=== PATIENT | female | born 1975 | race Two or more races ===

== ENCOUNTER 2024-04-25 09:30 | Inpatient (IN) | payer OTHER ==
[~2024-04-25] VITALS: Ht 162.6 cm; Wt 72.6 kg
[2024-04-25 10:39] LABS: HEMATOCRIT 35.5 % (36.0-45.00); HEMOGLOBIN 11.7 g/dL (12.0-15.00); MEAN CELL VOLUME 80.4 fL (80.00-100.00); MEAN CORPUSCULAR HEMOGLOBIN 26.5 pg (27.00-32.0); MEAN CORPUSCULAR HGB CONC 32.9 g/dl (32.0-36.0); PLATELET COUNT 246 K/uL (150-450); RED BLOOD COUNT 4.41 M/uL (4.00-6.00)
[2024-04-25 10:42] LABS: URINE APPEARANCE Cloudy; URINE BILIRRUBIN Negative (NEGATIVE); URINE BLOOD Negative; URINE COLOR Yellow; URINE GLUCOSE Negative (NEGATIVE); URINE KETONE Trace (NEGATIVE); URINE LEUKOCYTE Negative; URINE NITRATE Negative; URINE PROTEIN Trace (NEGATIVE)
[2024-04-25 10:46] LABS: URINE BACTERIA 2431.7 uL (0.0-1933); URINE RBC 4.2 uL (0.0-20.8)
[2024-04-25 10:55] LABS: URINE CAST 0.61 uL (0.0-1.40)
[2024-04-25 11:06] LABS: INR 0.94; PARTIAL THROMBOPLASTIN TIME 27.8 SECONDS (22.0-34.0); PROTHROMBIN TIME 9.9 SECONDS (9.0-11.5)
[2024-04-25 11:22] LABS: ALBUMIN 3.9 gm/dL (3.4-5.0); BILIRUBIN TOTAL 0.55 mg/dL (0.3-1.2); CREATININE SERUM 0.7 mg/dL (0.55-1.02); GFR 88.57; GLOBULINA 2.7 G/DL (2.4-3.5); POTASSIUM 4.29 mEq/L (3.5-5.1); TOTAL PROTEIN 6.6 gm/dL (6.4-8.2)
[2024-05-01] MEDS ORDERED: CLINDAMYCIN PHOSPHATE 150 MG/ML (900mg) ONE (07:07)
[2024-05-01] MEDS ORDERED: POVIDONE-IODINE 118 ML BOTT TOP ONE ×2 (07:08→10:15)
[2024-05-01] MEDS ORDERED: CLINDAMYCIN PHOSPHATE 150 MG/ML (900mg) IV SCH (10:15)
[2024-05-01] MEDS ORDERED: LIDOCAINE HCL 1%/EPINEPHRINE 20ML VIAL IJ ONE (10:31)
[2024-05-01] MEDS ORDERED: MEPERIDINE HCL/PF 50 MG/ML VIAL IM PRN (13:30)
[2024-05-01] MEDS ORDERED: RINGERS SOLUTION,LACTATED 1,000 ML IV SCH (13:30)
[2024-05-01] MEDS ORDERED: PROMETHAZINE HCL 50 MG/ML AMPUL IM PRN (13:30)
[2024-05-01] MEDS ORDERED: KETOROLAC TROMETHAMINE 30 MG VIAL ONE (16:24)
[2024-05-01] MEDS ORDERED: KETOROLAC TROMETHAMINE 30 MG VIAL IV SCH (17:00)
[2024-05-02 06:41] LABS: HEMATOCRIT 29.9 % (36.0-45.00); HEMOGLOBIN 9.7 g/dL (12.0-15.00); MEAN CELL VOLUME 82.7 fL (80.00-100.00); MEAN CORPUSCULAR HGB CONC 32.6 g/dl (32.0-36.0); PLATELET COUNT 148 K/uL (150-450); RED BLOOD COUNT 3.61 M/uL (4.00-6.00); RED CELL DISTRIBUTION WIDTH 16.1 % (11.5-14.5)
[2024-05-02] MEDS ORDERED: OxyCODONE HCL/APAP UD (PERCOCET) PO PRN (07:00)
[2024-05-02] MEDS ORDERED: SIMETHICONE 125 MG CAPSULE PO SCH (09:00)
== END 2024-05-02 16:39 | disposition home or self-care (01) | DRG 743 ==
LOC: OB/GYN 05-01 05:23 → O/R 05-01 05:23 → SURG 05-01 09:15 → OB/GYN 05-01 14:55
PROVIDERS: ADMIT Obstetrics & Gynecology; ATTEND Obstetrics & Gynecology
PROC: 0UT74ZZ Resection of Bilateral Fallopian Tubes, Percutaneous Endoscopic Approach (ICD-10-PCS; 2024-05-01)
PROC: 0UT24ZZ Resection of Bilateral Ovaries, Percutaneous Endoscopic Approach (ICD-10-PCS; 2024-05-01)
PROC: 0UT94ZZ Resection of Uterus, Percutaneous Endoscopic Approach (ICD-10-PCS; principal; 2024-05-01 09:15)
DX: D25.1 Intramural leiomyoma of uterus (principal); D25.2 Subserosal leiomyoma of uterus; D25.0 Submucous leiomyoma of uterus; Z20.822 Contact with and (suspected) exposure to COVID-19